=== PATIENT | female | born 1945 | race Hispanic/Latino ===

== ENCOUNTER → 2017-08-06 | Outpatient (CLI) | payer MEDICARE ==
--- NOTE | 2017-08-07 12:01 | Diagnostic Imaging Report ---
EXAM: DXA BONE DENSITY INDICATIONS: Screening for Osteoporosis COMPARISON: None. FINDINGS: Proximal left femur total bone mineral density (BMD) (g/cm2):0.735 Femur T-score (standard deviation relative to young adult mean BMD): -1.7 Femur Z-score (standard deviation relative to age-matched control group):-0.1 Proximal left femur neck bone mineral density (BMD) (g/cm2):0.636 Femur T-score (standard deviation relative to young adult mean BMD): -2.0 Femur Z-score (standard deviation relative to age-matched control group):-0.1 Lumbar bone mineral density (BMD) (g/cm2):0.969 Lumbar T-score (standard deviation relative to young adult mean BMD): -0.7 Lumbar Z-score (standard deviation relative to age-matched control group):1.5 Change since prior exam (%): Femur:Not applicable. Spine:Not applicable. Change since oldest prior exam (%): Femur:Not applicable. Spine:Not applicable. CONCLUSION: 1. Bone mineral density in the left femur is classified as osteopenia. Fracture risk is increased. 10 year major osteoporotic fracture risk 6.5% 2. Bone mineral density in the spine is classified as normal. Fracture risk is not increased. World Health Organization Classification: *The Z-score is provided for informational purposes. The T-score is preferable for clinical decisions. When comparing exams, a change of >4% is considered statistically significant. SUGGESTED RECOMMENDATIONS: Normal \T\ Osteopenia:Consideration should be given to use of calcium supplementation, daily multiple vitamins and adequate exercise, as preventive measures against osteoporosis, if clinically indicated. Osteoporosis \T\ Severe Osteoporosis:In addition to the above, consideration should be given to medical therapy against osteoporosis, if clinically indicated. Brendan Narvaez M.D. Dictated by: Brendan Narvaez M.D. on 08/07/2017 at 12:01 Electronically approved by: Brendan Narvaez M.D. on 08/07/2017 at 12:01
--- NOTE | 2017-08-14 08:25 | Diagnostic Imaging Report ---
#[id number] - MGSCRNBI #BILATERAL DIGITAL SCREENING MAMMOGRAM WITH CAD: 08/06/2017 CLINICAL: Routine screening. Comparison is made to exam dated: 04/11/2014 mammogram - [facility]. Current study contains 4 films. The tissue of both breasts is predominantly fatty. Current study was also evaluated with a Computer Aided Detection (CAD) system. There is a heterogeneous calcification in the left breast at 6 o'clock middle depth. These calcifications are new compared to the prior mammogram. No other significant masses, calcifications, or other findings are seen in either breast. IMPRESSION: INCOMPLETE: NEEDS ADDITIONAL IMAGING EVALUATION The heterogeneous calcification in the left breast is indeterminate. Spot magnification and spot compression views are recommended. The patient will be contacted by the Mammography Department to schedule this appointment. Yogesh Maier Jr., D.O. cw/:08/13/2017 14:05:23 [employer] Operator: Rozina FLETCHER)(Matthieu), [facility] letter sent: Additional Imaging Needed Mammogram BI-RADS: 0 Indeterminate
== END ==
LOC: MAMMO 08:45
PROVIDERS: ATTEND Family Medicine
DX: Z12.31 Encounter for screening mammogram for malignant neoplasm of breast (principal); Z13.820 Encounter for screening for osteoporosis
CPT/HCPCS: 77080

== ENCOUNTER → 2017-08-29 | Outpatient (CLI) | payer MEDICARE ==
--- NOTE | 2017-08-29 18:11 | Diagnostic Imaging Report ---
#[id number] - [id number] #UNILATERAL LEFT DIGITAL DIAGNOSTIC MAMMOGRAM WITH SPOT COMPRESSION: 08/29/2017 Comparison is made to exams dated: 08/06/2017 mammogram - [facility] and 04/11/2014 mammogram - [facility]. Current study contains 3 films. The tissue of the left breast is predominantly fatty. There are two grouped calcifications in the left breast at the 6 o'clock position that are new compared to outside study dated 04/11/2014. A biopsy is recommended and since the grouping is about 1 cm apart, a needle localization and surgical excision would be the most appropriate method. IMPRESSION: SUSPICIOUS OF MALIGNANCY Calcification that is new requires biopsy. A phone call was made to the ordering physician and the case discussed. Yogesh Maier Jr., D.O. cw/:08/29/2017 11:50:16 Control Clerk: Rozina BROWN(Adolph)(Matthieu), [facility] letter sent: Biopsy Required Mammogram BI-RADS: 4 Suspicious abnormality
== END ==
LOC: MAMMO 09:01
PROVIDERS: ATTEND Family Medicine
DX: R92.8 Other abnormal and inconclusive findings on diagnostic imaging of breast (principal)